=== PATIENT | male | born 1995 | race Asian ===

== ENCOUNTER 2017-10-11 16:49 | Emergency (ER) | payer BC, OTHER, SELFPAY ==
[2017-10-11 16:51] VITALS: BP 131/60; PULSE 95; RESP 18; TEMP 36.8; O2SAT 100; BMI 25.7
--- NOTE | 2017-10-11 17:01 | ED.DCSUM_ITS ---
- ER Visit Summary Date of Service: 10/11/17 Chief Complaint: leg Cramps History of Present Illness: The patient is a 22 M who presents with bilateral leg cramps after playing tennis for 2-1/2 hours today. Patient is complaining of tightness and cramping in the thighs and hamstrings. He has had this happen before and was drinking Pedialyte starting yesterday to try and prevent this from happening. He began having cramping anyway and is currently experiencing tightness and discomfort in the legs. He denies any cramping in the back, arms , calves or elsewhere. No chest pain, shortness of breath, dizziness or lightheadedness, fever, diaphoresis, abdominal pain, nausea or vomiting. No other complaints at this time. No medical history. Physical Examination: Vital signs: afebrile, hemodynamically stable, no hypoxia on room air General: well nourished, well developed, in no distress Skin: warm, dry, no rash, no pallor HEENT: normocephalic and atraumatic; PERRL, EOMI, moist mucous membranes Cardiovascular: regular rate and rhythm without murmurs, no peripheral edema, 2 + pulses all distal extremities Respiratory: No increased work of breathing, lungs are clear to auscultation bilaterally, no rales, rhonchi or wheezing Abdominal: Abdomen is soft, nontender with normoactive bowel sounds, no guarding or rebound, no masses MSK: Moves all extremities, no deformities, normal strength, diffuse tenderness to palpation of bilateral quadriceps and hamstrings. No calf tenderness. Pain with passive and active movement of the flexors and knee flexion and extension. Neuro: Awake and alert, oriented ?4. No facial droop, sensation and motor function intact and symmetric Test Results: Abnormal Lab Results 10/11/17 10/11/17 17:01 17:41 Sodium 137 Potassium 4.6 Chloride 105 Carbon Dioxide 27.0 Anion Gap 5 BUN 18 Creatinine 1.00 Estim Creat Clear Calc 119.64 Est GFR (MDRD) Af Amer 121 Est GFR (MDRD) Non-Af 100 BUN/Creatinine Ratio 18.1 Glucose 72 L Calcium 9.3 Magnesium 1.8 Total Creatine Kinase 804 H Urine Color Yellow Urine Clarity Clear Urine pH 6.5 Ur Specific [place] 1.010 Urine Protein Negative Urine Glucose (UA) Normal Urine Ketones Negative Urine Occult Blood Negative Urine Nitrite Negative Urine Bilirubin Negative Urine Urobilinogen Normal Ur Leukocyte Esterase Negative Urine RBC 0 SEEN Urine WBC 0 SEEN Ur Squamous Epith Cells 0 SEEN Urine Bacteria 0 SEEN Urine Mucus 0 SEEN Emergency Department Course and Treatment: Patient's evaluation is more consistent with muscle soreness from muscle cramps, and there was no risk factors or indication that this would be bilateral DVTs. Patient's electrolytes were evaluated, with sodium, potassium and magnesium all within normal limits. CK was mildly elevated at 804, likely due to his strenuous exercise today. Urine showed no signs of myoglobinuria. Patient was given IV hydration. He felt much better afterwards. He was advised to follow-up with his doctor if he continues having issues with the cramps despite attempts to stay well hydrated with electrolyte solutions. Patient was discharged home in improved condition. Treatment Plan: [] Disposition: [] Impression: Muscle cramps of bilateral legs, mild dehydration This note was generated with Footnote dictation software. It may contain incorrect words, spelling, and punctuation that were not noted in review of the chart prior to signing ED Disposition - Plan for ED Patient: Disposition: Home or Assisted Living Chief Complaint: Lower Extremity Injury Instructions: ED Muscle Pain Leg Cramps Referrals: Care Physician,No Primary [Primary Care Provider] - Doctor,Your [STAFF PHYSICIAN] - As Needed Additional Instructions: Please continue to stay well-hydrated while doing physical activities. Gatorade or Powerade are good choices. Follow up with your doctor for another evaluation of your recurrent muscle cramping to discuss other possible preventative techniques and other possible causes. If you have any worsening of your condition or any new concerning symptoms, please return to emergency department immediately for another evaluation.
[2017-10-11] MEDS: 0.9% Normal Saline 1,000 ML 999 ML IV (17:06)
[2017-10-11 17:33] LABS: Anion Gap 5 (5-15); BUN 18 mg/dL (7-18); BUN/Creat Ratio 18.1 RATIO (10-20); CPK Total, Creatine Kinase 804 U/L (39-308); Calcium,Total 9.3 mg/dL (8.5-10.1); Chloride 105 mmol/L (98-107); EST Glomerular Filtration Rate 100 mL/min (>60); Est Glom Filt Rate - Afr Amer 121 mL/min (>60); Estimated Creatinine Clearance 119.64 ml/min; Glucose 72 mg/dL (74-106); Magnesium 1.8 mg/dL (1.6-2.6); Potassium 4.6 mmol/L (3.5-5.1); Sodium Level 137 mmol/L (136-145)
[2017-10-11 18:01] LABS: Bacteria 0 SEEN /hpf (None Seen); Mucous, Urine 0 SEEN /hpf (<or=2+); Red Blood Cells-Urine 0 SEEN /hpf (0-5); Squamous Epithelial Cells - UA 0 SEEN /hpf (0-5); White Blood Cells 0 SEEN /hpf (0-5)
[2017-10-11 18:12] LABS: Color, Urine Yellow (Yellow); Glucose, Dipstick Normal (Normal); Ketone-Dipstick Negative (Negative); Leukocyte Esterase-Dipstick Negative /ul (Negative); Nitrite-Dipstick Negative (Negative); Occult Blood-Urine Negative /ul (Negative); Protein-Dipstick Negative (Negative); Urine Bilirubin Dipstick Negative (Negative); Urine Clarity Clear (Clear); Urine Urobilinogen Normal (Normal); Urine pH 6.5 (5.0 - 8.0)
--- NOTE | 2017-10-11 18:35 | ED.DEP ---
ED Disposition - Plan for ED Patient: Disposition: Home or Assisted Living Chief Complaint: Lower Extremity Injury Instructions: ED Muscle Pain Leg Cramps Referrals: Care Physician,No Primary [Primary Care Provider] - Doctor,Your [STAFF PHYSICIAN] - As Needed Additional Instructions: Please continue to stay well-hydrated while doing physical activities. Gatorade or Powerade are good choices. Follow up with your doctor for another evaluation of your recurrent muscle cramping to discuss other possible preventative techniques and other possible causes. If you have any worsening of your condition or any new concerning symptoms, please return to emergency department immediately for another evaluation.
[2017-10-11 18:46] VITALS: PULSE 86; O2SAT 100
== END 2017-10-11 18:46 | disposition home or self-care (01) ==
PROVIDERS: Emergency Provider Emergency Medicine
DX: R25.2 Cramp and spasm (principal); E86.0 Dehydration
CPT/HCPCS: 80048; 81001; 82550; 83735; 99285; A4216